=== PATIENT | female | born 1965 | race Caucasian/White ===

== ENCOUNTER 2017-01-28 11:09 | Outpatient (CLI) | payer OTHER ==
--- NOTE | 2017-01-28 11:41 | DIAGNOSTIC IMAGING REPORT ---
PROCEDURE: XR KNEE 3 VIEWS - LEFT INDICATION: ACUTE PAIN L KNEE TECHNIQUE: Three views. COMPARISON: None. FINDINGS: Osseous structures and joint spaces are normal. IMPRESSION: 1. Normal left knee.
== END 2017-01-28 23:00 ==
LOC: XR SRH 11:09
DX: M25.562 Pain in left knee (principal)

== ENCOUNTER 2017-02-12 14:02 | Outpatient (CLI) | payer OTHER ==
--- NOTE | 2017-02-12 16:29 | DIAGNOSTIC IMAGING REPORT ---
PROCEDURE: US VENOUS - LEFT EXT INDICATION: LEFT LEG PAIN TECHNIQUE: Duplex sonography of the deep venous system in the left lower extremity was performed. Compression and augmentation techniques were used. COMPARISON: None. FINDINGS: Each interrogated segment of deep vein from the common femoral vein into the calf veins demonstrates normal compressibility, augmentation and/or color Doppler flow without filling defect. No evidence of significant soft-tissue edema, soft-tissue mass or cyst. Popliteal region was evaluated. Greater saphenous vein is absent or sclerosed. There is no residual hematoma/fluid collection or suspicious mass. IMPRESSION: 1. No deep venous thrombosis in the left lower extremity. 2. No sonographic abnormality in the popliteal region/area of pain. 3. Surgically absent or sclerosed greater saphenous vein.
--- NOTE | 2017-02-12 16:37 | DIAGNOSTIC IMAGING REPORT ---
PROCEDURE: US ABDOMEN ULTRASOUND-LIMITED INDICATION: HEP C TECHNIQUE: Almodovar scale and color Doppler sonographic images were obtained of the right upper quadrant. COMPARISON: None. FINDINGS: The liver is normal in size, contour, and echotexture. No mass or biliary dilatation. The gallbladder is partially contracted, the patient was not n.p.o., but appears grossly normal without stones or sludge. Normal wall thickness at 3.3 mm No pericholecystic fluid or Mayer's sign. Normal common duct at 5.1 mm. The visible portion of the inferior vena cava, abdominal aorta, and portal vein appear normal with appropriate direction of flow in the portal vein. The right kidney measures 11.5 cm in length and contains a simple cyst measuring 1.9 cm in the upper to mid cortex. No free fluid in the right upper quadrant. IMPRESSION: 1. Normal liver without sonographic signs of cirrhosis. 2. 1.9 cm right renal cyst.
== END 2017-02-12 23:00 ==
LOC: US SRH 14:02
DX: M79.605 Pain in left leg (principal); B19.20 Unspecified viral hepatitis C without hepatic coma; N28.1 Cyst of kidney, acquired